=== PATIENT | female | born 1950 | race American Indian/Alaskan Native ===

== ENCOUNTER 2020-05-07 09:10 | Outpatient (CLI) | payer MEDICARE, OTHER ==
[2020-05-07 10:08] LABS: Hemoglobin 11.2 gm/dl (10.1-14.3); Mean Corpuscular HGB Conc 34 % (30-34); Mean Corpuscular Volume 98 fl (79-97); Platelet Count 250 K/mm3 (140-440); Red Blood Count 3.37 M/mm3 (3.65-5.03); Red Cell Distribution Width 13.9 % (13.2-15.2)
[2020-05-07 10:25] LABS: Calcium 9.6 mg/dL (8.4-10.2); Chol/HDL Ratio 2.3 %
--- NOTE | 2020-05-07 10:47 | XRay Report ---
CHEST 2 VIEWS INDICATION: SHORTNESS OF BREATH. COMPARISON: None FINDINGS: Support devices: None. Heart: Within normal limits. Lungs/pleura: No acute air space or interstitial disease. No pneumothorax. Additional findings: None. IMPRESSION: No acute findings. Signer Name: Satya Foreman Jr, MD Signed: 05/07/2020 10:42 AM Workstation Name: [id number]
== END 2020-05-07 09:11 | disposition home or self-care (01) ==
LOC: CT 09:10
PROVIDERS: ATTEND Internal Medicine
DX: C18.3 Malignant neoplasm of hepatic flexure (principal); J44.9 Chronic obstructive pulmonary disease, unspecified; R63.5 Abnormal weight gain; I26.99 Other pulmonary embolism without acute cor pulmonale; R06.02 Shortness of breath; R05 Cough; D68.69 Other thrombophilia
CPT/HCPCS: 36415; 71046; 80053; 80061; 84436; 84443; 85027